=== PATIENT | female | born 1990 | race Two or more races ===

== ENCOUNTER 2025-03-26 08:37 | Emergency (ER) | payer OTHER ==
[~2025-03-26] VITALS: Ht 162.6 cm; Wt 83.5 kg
[2025-03-26 10:12] LABS: INR 1.08; PARTIAL THROMBOPLASTIN TIME 33.2 SECONDS (22.0-34.0); PROTHROMBIN TIME 11.7 SECONDS (9.0-11.5)
[2025-03-26 10:23] LABS: HEMATOCRIT 37.4 % (34.1-44.9); HEMOGLOBIN 12.5 g/dL (11.2-15.7); MEAN CORPUSCULAR HEMOGLOBIN 28.5 pg (25.6-32.2); PLATELET COUNT 260 K/uL (163-369); RED BLOOD COUNT 4.39 M/uL (3.93-5.22); RED CELL DISTRIBUTION WIDTH 13.9 % (11.6-14.4)
[2025-03-26 10:24] LABS: BASO % 0.7 % (0.1-1.2); EOS # 0.35 (0.04-0.54); EOS % 3.7 % (0.7-7.0); LYMPH % 29.8 % (19.3-53.1); MONO # 0.46 (0.24-0.82); MONO % 4.9 % (4.7-12.5); NEUT # 5.68 (1.56-6.13); NEUT % 60.4 % (34.0-71.1)
[2025-03-26 10:37] LABS: ALBUMIN 3.6 gm/dL (3.4-5.0); BILIRUBIN TOTAL 0.41 mg/dL (0.3-1.2); CALCIUM 8.6 mg/dL (8.5-10.1); CREATININE SERUM 0.64 mg/dL (0.55-1.02); GFR 105.6; GLOBULINA 3.7 G/DL (2.4-3.5); POTASSIUM 3.84 mEq/L (3.5-5.1); TOTAL PROTEIN 7.3 gm/dL (6.4-8.2)
[2025-03-26] MEDS ORDERED: TRAMADOL HCL 50 MG TABLET PO ONE (13:15)
== END 2025-03-26 13:38 | disposition home or self-care (01) ==
LOC: ER 08:37
PROVIDERS: General Practice
DX: N93.9 Abnormal uterine and vaginal bleeding, unspecified (principal); Z88.6 Allergy status to analgesic agent; Z91.013 Allergy to seafood